=== PATIENT | female | born 1995 | race Hispanic/Latino ===

== ENCOUNTER 2017-09-01 20:31 | Emergency (ER) | payer SELFPAY ==
[2017-09-01 20:47] VITALS: BP 108/71
[2017-09-01 21:55] LABS: Hematocrit 36.8 % (30.3-42.9); Hemoglobin 12.1 gm/dl (10.1-14.3); Mean Corpuscular HGB Conc 33 % (30-34); Mean Corpuscular Hemoglobin 32 pg (28-32); Mean Corpuscular Volume 98 fl (79-97); Platelet Count 285 K/mm3 (140-440); Red Blood Count 3.75 M/mm3 (3.65-5.03); Red Cell Distribution Width 13.5 % (13.2-15.2); White Blood Count 8.6 K/mm3 (4.5-11.0)
[2017-09-01 22:01] LABS: Alanine Aminotransferase 8 units/L (7-56); Albumin 3.8 g/dL (3.9-5); Albumin/Globulin Ratio 1.3 %; Alkaline Phosphatase 40 units/L (35-129); Anion Gap 18 mmol/L; BUN/Creatinine Ratio 13; Blood Urea Nitrogen 10 mg/dL (7-17); Calcium 9.2 mg/dL (8.4-10.2); Carbon Dioxide 25 mmol/L (22-30); Chloride 101.6 mmol/L (98-107); Glucose 92 mg/dL (65-100); Lipase 111 units/L (13-60); Potassium 4.1 mmol/L (3.6-5.0); Sodium 140 mmol/L (137-145); Total Protein 6.7 g/dL (6.3-8.2)
[2017-09-01 22:35] LABS: Blastocytes % (Manual) 0 %
[2017-09-01 22:36] LABS: Anisocytosis 1+; Diff Status Complete; Ovalocytes 1+
== END 2017-09-01 22:12 | disposition other institution (70) ==
LOC: ED 20:31
DX: R10.9 Unspecified abdominal pain (principal); Z53.21 Procedure and treatment not carried out due to patient leaving prior to being seen by health care provider
CPT/HCPCS: 36415; 80053; 83690; 84703; 85007; 85025

== ENCOUNTER 2017-09-02 15:52 | Emergency (ER) | payer SELFPAY ==
--- NOTE | 2017-09-02 17:01 | Emergency Department Report ---
Chief Complaint: Abdominal Pain Stated Complaint: ABD PAIN Time Seen by Provider: 09/02/17 16:56 - HPI History of Present Illness: 22-year-old female presented with lower pelvic cramping 2 days. She admits to nausea /vomiting She denies fevers/chills/vaginal bleeding/dysuria/ - ROS Review of Systems: As noted in HPI - Exam Vital Signs: Vital Signs 09/02/17 16:15 Temperature 98.1 F Pulse Rate 68 Respiratory 16 Rate Blood Pressure 135/87 O2 Sat by Pulse 99 Oximetry Physical Exam: GENERAL: Alert and oriented x3, no apparent distress, Normal Gait, atraumatic. ABDOMEN: No organomegaly was noted,Positive bowel sounds, soft, and non- distended. Tender to palpation of lower pelvic region, NO CVA tenderness. SKIN: Warm and dry, No lesions, No ulceration or induration present. MSE screening note: Focused history and physical exam performed. Due to findings the following was ordered: ED Medical Decision Making - Medical Decision Making 22-year-old female actively vomiting Zofran and Tylenol ordered for patient Protocol ordered. Patient to be seen by the physician ED Disposition for MSE Condition: Stable Instructions: Abdominal Pain (ED)
[2017-09-02] MEDS ORDERED: ZOFRAN ODT PO ONE (17:18)
[2017-09-02] MEDS ORDERED: ZOFRAN ODT ONE (17:18)
[2017-09-02 17:22] LABS: Basophils % (Auto) 0.8 % (0.0-1.8); Eosinophils % (Auto) 0.7 % (0.0-4.3); Hematocrit 38.8 % (30.3-42.9); Hemoglobin 13.7 gm/dl (10.1-14.3); Mean Corpuscular HGB Conc 35 % (30-34); Mean Corpuscular Hemoglobin 34 pg (28-32); Mean Corpuscular Volume 96 fl (79-97); Platelet Count 315 K/mm3 (140-440); Red Blood Count 4.04 M/mm3 (3.65-5.03); Red Cell Distribution Width 13.2 % (13.2-15.2)
[2017-09-02 17:45] LABS: Alanine Aminotransferase 10 units/L (7-56); Albumin 4.3 g/dL (3.9-5); Albumin/Globulin Ratio 1.2 %; Alkaline Phosphatase 50 units/L (35-129); Anion Gap 24 mmol/L; BUN/Creatinine Ratio 13; Blood Urea Nitrogen 8 mg/dL (7-17); Calcium 9.5 mg/dL (8.4-10.2); Carbon Dioxide 20 mmol/L (22-30); Chloride 98.4 mmol/L (98-107); Glucose 99 mg/dL (65-100); Lipase 22 units/L (13-60); Potassium 3.4 mmol/L (3.6-5.0); Sodium 139 mmol/L (137-145); Total Protein 7.8 g/dL (6.3-8.2)
--- NOTE | 2017-09-02 20:18 | Ultrasound Report ---
FINAL REPORT EXAM: US TRANSVAGINAL HISTORY: PELVIC PAIN TECHNIQUE: Ultrasound pelvis transvaginal PRIORS: None. FINDINGS: Uterus measures 6.7 x 3.4 x 3.9 centimeters No focal myometrial abnormality seen Endometrial thickness is 0.2 centimeters Right ovary is 1.6 x 1.4 x 2.8 centimeters Left ovary is 2.3 x 2.1 x 2.3 centimeters No abnormal ovarian mass identified No free fluid identified within the cul-de-sac Noted on transabdominal exam is echogenic focus at the posterior wall of the bladder measuring 2.8 centimeters. No vascularity seen on color Doppler evaluation. Could reflect mass or possibly clot within the bladder. IMPRESSION: 2.8 centimeter mass versus clotted debris within the urinary bladder. May require additional urologic evaluation Otherwise normal study
--- NOTE | 2017-09-02 20:19 | Ultrasound Report ---
FINAL REPORT EXAM: US PELVIC COMPLETE HISTORY: pelv pain TECHNIQUE: PRIORS: None. FINDINGS: Uterus measures 6.7 x 3.4 x 3.9 centimeters No focal myometrial abnormality seen Endometrial thickness is 0.2 centimeters Right ovary is 1.6 x 1.4 x 2.8 centimeters Left ovary is 2.3 x 2.1 x 2.3 centimeters No abnormal ovarian mass identified No free fluid identified within the cul-de-sac Noted on transabdominal exam is echogenic focus at the posterior wall of the bladder measuring 2.8 centimeters. No vascularity seen on color Doppler evaluation. Could reflect mass or possibly clot within the bladder. IMPRESSION: 2.8 centimeter mass versus clot or debris within the urinary bladder. May require additional urologic evaluation Otherwise normal study
[2017-09-02] MEDS ORDERED: REGLAN IV ONE (20:50)
[2017-09-02] MEDS ORDERED: DILAUDID IV ONE (20:50)
[2017-09-02] MEDS ORDERED: NACL 0.9% 1000 ML 1,000 ML IV ONE (20:50)
--- NOTE | 2017-09-02 20:55 | Emergency Department Report ---
ED Abdominal Pain HPI - General Chief Complaint: Abdominal Pain Stated Complaint: ABD PAIN Time Seen by Provider: 09/02/17 16:56 Source: patient, EMS Mode of arrival: Wheelchair Limitations: No Limitations - History of Present Illness Initial Comments: Patient is 22 years old female history of gastroparesis With abdominal pain in nausea and vomiting for 2 days. Patient denied any fever no diarrhea. Denied any urinary symptoms. MD Complaint: abdominal pain -: Gradual Location: diffuse Severity scale (0 -10): 7 Quality: cramping Consistency: constant Improves With: vomiting Associated Symptoms: vomiting - Related Data Previous Rx's Medication Instructions Recorded Last Taken Type Ibuprofen [Motrin] 800 mg PO Q8HR PRN #30 tablet 08/25/17 Unknown Rx Neomy/Baci/Polymyx/Hc Top Oint 1 applic TP TID #2 tube 08/25/17 Unknown Rx [Cortisporin TOPICAL Oint] Ondansetron [Zofran Odt] 4 mg PO Q8H #16 tab.rapdis 08/25/17 Unknown Rx Sulfamethoxazole/Trimethoprim 1 each PO BID #10 tablet 08/25/17 Unknown Rx [Bactrim DS TAB] Allergies Allergy/AdvReac Type Severity Reaction Status Date / Time cephalexin [From Keflex] Allergy Rash Verified 09/02/17 16:17 ED Review of Systems ROS: Stated complaint: ABD PAIN Other details as noted in HPI Comment: All other systems reviewed and negative Constitutional: denies: chills, fever Respiratory: denies: cough, orthopnea, shortness of breath, SOB with exertion Cardiovascular: denies: chest pain, palpitations, dyspnea on exertion Gastrointestinal: abdominal pain, nausea, vomiting. denies: diarrhea, constipation, hematemesis Musculoskeletal: denies: back pain Neurological: denies: headache, weakness, numbness, paresthesias ED Past Medical Hx - Past Medical History Previous Medical History?: Yes Additional medical history: Painful menstrual cycles, gastroporesis, IBS - Surgical History Past Surgical History?: No - Social History Smoking Status: Current Every Day Smoker Substance Use Type: Marijuana - Medications Home Medications: Home Medications Medication Instructions Recorded Confirmed Last Taken Type Ibuprofen [Motrin] 800 mg PO Q8HR PRN #30 tablet 08/25/17 Unknown Rx Neomy/Baci/Polymyx/Hc Top Oint 1 applic TP TID #2 tube 08/25/17 Unknown Rx [Cortisporin TOPICAL Oint] Ondansetron [Zofran Odt] 4 mg PO Q8H #16 tab.rapdis 08/25/17 Unknown Rx Sulfamethoxazole/Trimethoprim 1 each PO BID #10 tablet 08/25/17 Unknown Rx [Bactrim DS TAB] ED Physical Exam - General Limitations: No Limitations General appearance: alert, in no apparent distress - Head Head exam: Present: normocephalic, normal inspection - Eye Eye exam: Present: normal appearance, PERRL - ENT ENT exam: Present: normal exam, mucous membranes dry - Neck Neck exam: Present: normal inspection, full ROM. Absent: tenderness, meningismus, lymphadenopathy - Respiratory Respiratory exam: Present: normal lung sounds bilaterally. Absent: respiratory distress, wheezes, rales, rhonchi, stridor, chest wall tenderness, decreased breath sounds, prolonged expiratory - Cardiovascular Cardiovascular Exam: Present: regular rate, normal rhythm, normal heart sounds - GI/Abdominal GI/Abdominal exam: Present: soft, tenderness (suprapubic), normal bowel sounds. Absent: distended, guarding, rebound, rigid, organomegaly, mass, bruit, pulsatile mass, hernia - Extremities Exam Extremities exam: Present: normal inspection, full ROM, normal capillary refill - Back Exam Back exam: Present: normal inspection. Absent: CVA tenderness (R), CVA tenderness (L), paraspinal tenderness, vertebral tenderness - Neurological Exam Neurological exam: Present: alert, oriented X3, CN II-XII intact, normal gait - Skin Skin exam: Present: warm, intact, normal color. Absent: cyanosis, diaphoretic ED Course Vital Signs 09/02/17 09/02/17 09/02/17 16:15 21:30 22:01 Temperature 98.1 F 97.8 F Pulse Rate 68 67 90 Respiratory 16 16 15 Rate Blood Pressure 135/87 115/71 114/72 O2 Sat by Pulse 99 98 Oximetry 09/02/17 22:16 Temperature Pulse Rate 108 H Respiratory 14 Rate Blood Pressure 114/72 O2 Sat by Pulse 98 Oximetry - Reevaluation(s) Reevaluation #1: 09/02/17 22:56 Patient stated that she is feeling better no more vomiting. I informed the patient about the ultrasound finding A 2.5 cm mass in the urinary bladder and the need to follow-up with a urologist in the next few days patient understood and she stated that she will find a urologist to follow-up with. ED Medical Decision Making - Lab Data Result diagrams: 09/02/17 17:07 09/02/17 17:07 - Radiology Data Radiology results: report reviewed Pelvic ultrasound showed 2.5 cm mass in the urinary bladder. Could be a mass or debris so clots in the bladder, urology follow-up was recommended. Critical care attestation.: If time is entered above; I have spent that time in minutes in the direct care of this critically ill patient, excluding procedure time. ED Disposition Clinical Impression: Abdominal pain, Mass of urinary bladder determined by ultrasound Disposition: DC-01 TO HOME OR SELFCARE Is pt being admited?: No Condition: Stable Instructions: Abdominal Pain (ED)
[2017-09-02] MEDS ORDERED: ATIVAN IV ONE (21:15)
[2017-09-02 22:24] LABS: Bilirubin,Urine NEG (Negative); Blood,Urine NEG (Negative); Ketones,Urine 80 mg/dL (Negative); Leukocyte Esterase,Urine NEG (Negative); Mucus,Urine 3+ /HPF; Nitrite,Urine NEG (Negative); Urobilinogen,Urine < 2.0 mg/dL (<2.0); WBC,Urine < 1.0 /HPF (0.0-6.0)
[2017-09-02 23:21] VITALS: BP 115/67
== END 2017-09-02 23:36 | disposition home or self-care (01) ==
LOC: ED 15:52
DX: N32.89 Other specified disorders of bladder (principal); F17.200 Nicotine dependence, unspecified, uncomplicated; F12.10 Cannabis abuse, uncomplicated; Z88.1 Allergy status to other antibiotic agents
CPT/HCPCS: 36415; 76830; 76856; 80053; 81001; 83690; 84703; 85025; 96361; 96374; 96375; 99285; J1170; J2060; J2765; J7030; Q0162

== ENCOUNTER 2017-09-16 19:39 | Emergency (ER) | payer MEDICAID, OTHER ==
[2017-09-16 20:41] LABS: Basophils % (Auto) 0.8 % (0.0-1.8); Eosinophils % (Auto) 0.4 % (0.0-4.3); Hematocrit 42.6 % (30.3-42.9); Hemoglobin 14.6 gm/dl (10.1-14.3); Mean Corpuscular HGB Conc 34 % (30-34); Mean Corpuscular Hemoglobin 33 pg (28-32); Mean Corpuscular Volume 96 fl (79-97); Platelet Count 252 K/mm3 (140-440); Red Blood Count 4.44 M/mm3 (3.65-5.03); Red Cell Distribution Width 12.6 % (13.2-15.2); White Blood Count 9.1 K/mm3 (4.5-11.0)
[2017-09-16 21:02] LABS: Alanine Aminotransferase 13 units/L (7-56); Albumin 4.5 g/dL (3.9-5); Albumin/Globulin Ratio 1.3 %; Alkaline Phosphatase 61 units/L (35-129); Anion Gap 26 mmol/L; BUN/Creatinine Ratio 15; Blood Urea Nitrogen 9 mg/dL (7-17); Calcium 9.5 mg/dL (8.4-10.2); Carbon Dioxide 21 mmol/L (22-30); Chloride 94.2 mmol/L (98-107); Glucose 96 mg/dL (65-100); Lipase 22 units/L (13-60); Potassium 3.1 mmol/L (3.6-5.0); Sodium 138 mmol/L (137-145); Total Protein 7.9 g/dL (6.3-8.2)
[2017-09-17 03:18] LABS: Bacteria,Urine 2+ /HPF (Negative); Bilirubin,Urine NEG (Negative); Blood,Urine NEG (Negative); Ketones,Urine 80 mg/dL (Negative); Leukocyte Esterase,Urine NEG (Negative); Mucus,Urine 3+ /HPF; Nitrite,Urine NEG (Negative); Protein,Urine <15 mg/dL mg/dL (Negative); Urobilinogen,Urine < 2.0 mg/dL (<2.0)
[2017-09-17] MEDS ORDERED: ZOFRAN IV ONE (04:07)
[2017-09-17] MEDS ORDERED: LEVAQUIN 750MG/150ML 750 MG/150 ML BAG IV ONE (04:10)
[2017-09-17] MEDS ORDERED: DILAUDID IV ONE (04:21)
--- NOTE | 2017-09-17 04:21 | Emergency Department Report ---
ED General Adult HPI - General Chief complaint: Abdominal Pain Stated complaint: PELVIC PAIN Time Seen by Provider: 09/17/17 04:09 Source: patient, RN notes reviewed, old records reviewed Mode of arrival: Wheelchair Limitations: No Limitations - History of Present Illness Initial comments: This is a 22-year-old female who was previously unknown to this provider. Patient recently moved here from [facility], and does not have a local primary care doctor. Presents to the ER with a complaint of subacute lower abdominal cramping and pain, nausea and vomiting, unintentional weight loss, malaise and fatigue. Patient reports being seen at another hospital last week for passing out. She reports that she feels lightheaded, dizzy and very dehydrated difficulty tolerating liquid feeds. Patient denies irritative and obstructive urinary symptoms. Her pain does not improve with a hot shower. She is very concerned about endometriosis. Patient has had extensive workup here already, had a CT scan of the abdomen and pelvis 23 days ago which was negative for acute findings, had a pelvic ultrasound which demonstrated nonspecific findings, patient has been discharged in the past with pain medication and nausea medication. The patient's pain is sharp and achy, and increases with palpation it decreases with rest. Not radiate anywhere. -: Gradual, week(s) Location: abdomen, pelvis Radiation: non-radiation Quality: aching Consistency: constant Improves with: rest Worsens with: movement Associated Symptoms: loss of appetite, malaise, nausea/vomiting, syncope ( syncope is not the patient's complaint today, but she does endorse that she had 2 episodes of syncope last week.), weakness. denies: confusion, chest pain - Related Data Previous Rx's Medication Instructions Recorded Last Taken Type Ibuprofen [Motrin] 800 mg PO Q8HR PRN #30 tablet 08/25/17 Unknown Rx Neomy/Baci/Polymyx/Hc Top Oint 1 applic TP TID #2 tube 08/25/17 Unknown Rx [Cortisporin TOPICAL Oint] Ondansetron [Zofran Odt] 4 mg PO Q8H #16 tab.rapdis 08/25/17 Unknown Rx Sulfamethoxazole/Trimethoprim 1 each PO BID #10 tablet 08/25/17 Unknown Rx [Bactrim DS TAB] Ondansetron [Zofran Odt] 4 mg PO Q8HR PRN #14 tab.rapdis 09/02/17 Unknown Rx traMADol [Ultram] 50 mg PO Q6HR PRN #14 tablet 09/02/17 Unknown Rx Dicyclomine [Bentyl] 10 mg PO QID PRN #30 capsule 09/17/17 Unknown Rx Ondansetron [Zofran Odt] 4 mg PO Q6HR PRN #30 tab.rapdis 09/17/17 Unknown Rx Promethazine [Phenergan SUPPOS] 50 mg [place] Q6H PRN #20 supp.rect 09/17/17 Unknown Rx Allergies Allergy/AdvReac Type Severity Reaction Status Date / Time cephalexin [From Keflex] Allergy Rash Verified 09/02/17 16:17 ED Review of Systems ROS: Stated complaint: PELVIC PAIN Other details as noted in HPI Constitutional: malaise, weakness ENT: denies: epistaxis Respiratory: denies: cough Cardiovascular: syncope. denies: chest pain Gastrointestinal: abdominal pain, nausea, vomiting Genitourinary: denies: urgency, dysuria, abnormal menses Musculoskeletal: denies: back pain Skin: denies: lesions Neurological: weakness Psychiatric: anxiety ED Past Medical Hx - Past Medical History Additional medical history: Painful menstrual cycles, gastroporesis, IBS - Social History Smoking Status: Never Smoker Substance Use Type: None - Medications Home Medications: Home Medications Medication Instructions Recorded Confirmed Last Taken Type Ibuprofen [Motrin] 800 mg PO Q8HR PRN #30 tablet 08/25/17 Unknown Rx Neomy/Baci/Polymyx/Hc Top Oint 1 applic TP TID #2 tube 08/25/17 Unknown Rx [Cortisporin TOPICAL Oint] Ondansetron [Zofran Odt] 4 mg PO Q8H #16 tab.rapdis 08/25/17 Unknown Rx Sulfamethoxazole/Trimethoprim 1 each PO BID #10 tablet 08/25/17 Unknown Rx [Bactrim DS TAB] Ondansetron [Zofran Odt] 4 mg PO Q8HR PRN #14 tab.rapdis 09/02/17 Unknown Rx traMADol [Ultram] 50 mg PO Q6HR PRN #14 tablet 09/02/17 Unknown Rx Dicyclomine [Bentyl] 10 mg PO QID PRN #30 capsule 09/17/17 Unknown Rx Ondansetron [Zofran Odt] 4 mg PO Q6HR PRN #30 tab.rapdis 09/17/17 Unknown Rx Promethazine [Phenergan SUPPOS] 50 mg [place] Q6H PRN #20 supp.rect 09/17/17 Unknown Rx ED Physical Exam - General Limitations: No Limitations General appearance: alert, in no apparent distress - Head Head exam: Present: atraumatic, normocephalic - Eye Eye exam: Present: normal appearance, EOMI - ENT ENT exam: Present: normal exam, normal orophraynx, mucous membranes moist, normal external ear exam - Neck Neck exam: Present: normal inspection, full ROM - Respiratory Respiratory exam: Present: normal lung sounds bilaterally. Absent: respiratory distress - Cardiovascular Cardiovascular Exam: Present: regular rate, normal rhythm, normal heart sounds. Absent: bradycardia, tachycardia, irregular rhythm, systolic murmur, diastolic murmur, rubs, gallop - GI/Abdominal GI/Abdominal exam: Present: soft, tenderness, normal bowel sounds, other (mild diffuse lower abdominal tenderness, no rebound or guarding or peritoneal signs) . Absent: distended, guarding, rebound, rigid, pulsatile mass - External exam: Present: normal external exam Speculum exam: Present: normal speculum exam. Absent: cervical discharge, vaginal bleeding Bi-manual exam: Present: normal bi-manual exam, other (escorted by data specialist mercedes cordero). Absent: cervical motion tendernes, adnexal tenderness, adnexal mass - Extremities Exam Extremities exam: Present: normal inspection, full ROM, normal capillary refill. Absent: pedal edema, joint swelling - Back Exam Back exam: Present: normal inspection, full ROM. Absent: tenderness, CVA tenderness (R), paraspinal tenderness, vertebral tenderness - Neurological Exam Neurological exam: Present: alert, oriented X3, other (Extraocular movements intact. Tongue midline. No facial droop. Facial sensation intact to light touch in the V1, V2, V3 distribution bilaterally. 5 and 5 strength in 4 extremities.. Sensation is intact to light touch in 4 extremities.). Absent: motor sensory deficit - Psychiatric Psychiatric exam: Present: anxious - Skin Skin exam: Present: warm, dry, intact, normal color. Absent: rash ED Course Vital Signs 09/16/17 09/17/17 09/17/17 19:42 02:45 03:00 Temperature 98.6 F Pulse Rate 97 H 68 88 Respiratory 18 14 Rate Blood Pressure 121/90 138/92 O2 Sat by Pulse 99 99 Oximetry 09/17/17 09/17/17 09/17/17 03:15 03:31 03:45 Temperature Pulse Rate 72 90 95 H Respiratory 19 20 20 Rate Blood Pressure 138/92 106/63 99/67 O2 Sat by Pulse 96 96 96 Oximetry 09/17/17 09/17/17 09/17/17 03:49 03:54 04:00 Temperature 98.5 F Pulse Rate 98 H Respiratory 18 20 Rate Blood Pressure 112/80 O2 Sat by Pulse 100 100 Oximetry 09/17/17 09/17/17 04:15 04:31 Temperature Pulse Rate 119 H 97 H Respiratory 11 L 17 Rate Blood Pressure 99/67 120/73 O2 Sat by Pulse 98 98 Oximetry - Reevaluation(s) Reevaluation #1: 09/17/17 05:17 Differential diagnosis, including but not limited to: Cyclic vomiting syndrome, cannabinoid hyperemesis syndrome, urinary tract infection, pelvic inflammatory disease, irritable bowel syndrome, endometriosis Assessment and plan: 22-year-old female with 3 weeks of lower abdominal pain, no irritative or obstructive urinary symptoms, benign gynecologic examination, therefore think urinary tract infection and PID unlikely. The patient most likely has irritable bowel syndrome or cyclic vomiting syndrome. Patient also reported possible gastroparesis which is also a possibility. I don't believe patient requires emergent imaging at this time, patient has had aggressive imaging here within the past month. The patient will be chewed with pain medication, nausea medication, and IV fluids. Patient will be given an oral trial once she has been medicated. Reevaluation #2: 09/17/17 05:52 The patient is able to tolerate liquid feeds. Still has lower abdominal tenderness but this has been present for 3 weeks. Tachycardia improved. Patient complaining IV fluids and IV potassium supplementation. Patient will be discharged with pain medication, nausea medication, instructions to follow up with outpatient primary care, gastroenterology, urology. ED Medical Decision Making - Lab Data Result diagrams: 09/16/17 20:06 09/16/17 20:06 Vital Signs 09/16/17 09/17/17 09/17/17 19:42 02:45 03:00 Temperature 98.6 F Pulse Rate 97 H 68 88 Respiratory 18 14 Rate Blood Pressure 121/90 138/92 O2 Sat by Pulse 99 99 Oximetry 09/17/17 09/17/17 09/17/17 03:15 03:31 03:45 Temperature Pulse Rate 72 90 95 H Respiratory 19 20 20 Rate Blood Pressure 138/92 106/63 99/67 O2 Sat by Pulse 96 96 96 Oximetry 09/17/17 09/17/17 09/17/17 03:49 03:54 04:00 Temperature 98.5 F Pulse Rate 98 H Respiratory 18 20 Rate Blood Pressure 112/80 O2 Sat by Pulse 100 100 Oximetry 09/17/17 09/17/17 04:15 04:31 Temperature Pulse Rate 119 H 97 H Respiratory 11 L 17 Rate Blood Pressure 99/67 120/73 O2 Sat by Pulse 98 98 Oximetry Labs 09/16/17 09/16/17 09/16/17 19:46 20:06 20:06 WBC 9.1 RBC 4.44 Hgb 14.6 H Hct 42.6 MCV 96 MCH 33 H MCHC 34 RDW 12.6 L Plt Count 252 Lymph % (Auto) 26.0 [place] % (Auto) 7.0 Eos % (Auto) 0.4 Baso % (Auto) 0.8 Lymph # 2.4 Kidder # 0.6 Eos # 0.0 Baso # 0.1 Seg Neutrophils % 65.8 Seg Neutrophils # 6.0 Sodium 138 Potassium 3.1 L Chloride 94.2 L Carbon Dioxide 21 L Anion Gap 26 BUN 9 Creatinine 0.6 L Estimated GFR > 60 BUN/Creatinine Ratio 15 Glucose 96 Calcium 9.5 Magnesium Total Bilirubin 0.80 AST 18 ALT 13 Alkaline Phosphatase 61 Total Protein 7.9 Albumin 4.5 Albumin/Globulin Ratio 1.3 Lipase 22 HCG, Qual Urine Color Yellow Urine Turbidity Clear Urine pH 7.0 Ur Specific [place] 1.016 Urine Protein <15 mg/dl Urine Glucose (UA) Neg Urine Ketones 80 Urine Blood Neg Urine Nitrite Neg Urine Bilirubin Neg Urine Urobilinogen < 2.0 Ur Leukocyte Esterase Neg Urine WBC (Auto) 13.0 H Urine RBC (Auto) 3.0 U Epithel Cells (Auto) < 1.0 Urine Bacteria (Auto) 2+ Urine WBC Clumps 2+ Urine Mucus 3+ 09/16/17 09/17/17 20:06 04:07 WBC RBC Hgb Hct MCV MCH MCHC RDW Plt Count Lymph % (Auto) [place] % (Auto) Eos % (Auto) Baso % (Auto) Lymph # [place] # Eos # Baso # Seg Neutrophils % Seg Neutrophils # Sodium Potassium Chloride Carbon Dioxide Anion Gap BUN Creatinine Estimated GFR BUN/Creatinine Ratio Glucose Calcium Magnesium 2.10 Total Bilirubin AST ALT Alkaline Phosphatase Total Protein Albumin Albumin/Globulin Ratio Lipase HCG, Qual Negative Urine Color Urine Turbidity Urine pH Ur Specific [place] Urine Protein Urine Glucose (UA) Urine Ketones Urine Blood Urine Nitrite Urine Bilirubin Urine Urobilinogen Ur Leukocyte Esterase Urine WBC (Auto) Urine RBC (Auto) U Epithel Cells (Auto) Urine Bacteria (Auto) Urine WBC Clumps Urine Mucus - EKG Data -: EKG Interpreted by Me EKG shows normal: sinus rhythm Rate: normal - EKG Data 09/17/17 05:20 Sinus, 99 bpm, normal axis, QTC prolonged, abnormal EKG, not morphologically consistent with ST elevation myocardial infarction. Critical care attestation.: If time is entered above; I have spent that time in minutes in the direct care of this critically ill patient, excluding procedure time. ED Disposition Clinical Impression: Lower abdominal pain Disposition: DC- TO HOME OR SELFCARE Is pt being admited?: No Does the pt Need Aspirin: No Condition: Stable Instructions: Abdominal Pain (ED) Additional Instructions: Cultures were sent today, results will be available in the next 3-5 days. Her primary care doctor contact medical records department to obtain culture results. Take the nausea medication, pain medication as directed. Use the Phenergan suppositories for intractable nausea or vomiting. Follow up with a primary care doctor within the next [address] Mccain is a local primary care doctor. Follow-up with a nicu rn within the next [address] Guido is a local nicu rn. Follow up with the urology specialist within the next month. Not following up with urology may result in undiagnosed tumor, cancer, malignancy of the urinary tract. Return to the ER right away with new pain, worsening pain, migration of pain, fevers, chills, lethargy, irritability, projectile vomiting, change in mental status, confusion, inability to tolerate liquid feeds. Referrals: PRIMARY CAREMD [Primary Care Provider] - 3-5 Days JOHANA MCCAIN MD [Staff Physician] - 3-5 Days CARYL GUIDO MD [Staff Physician] - 3-5 Days STEVIE CAPELLAN MD [Staff Physician] - 3-5 Days
[2017-09-17] MEDS ORDERED: D5/0.45NS 1,000 ML IV SCH (05:00)
[2017-09-17] MEDS ORDERED: D5NS 1,000 ML IV SCH ×2 (05:00)
[2017-09-17] MEDS ORDERED: K-DUR PO ONE (05:19)
[2017-09-17] MEDS ORDERED: BENADRYL ONE (05:38)
[2017-09-17] MEDS ORDERED: BENADRYL PO ONE (05:41)
[2017-09-17] MEDS ORDERED: KCL 20 MEQ in NACL 0.9% 250ML 250 ML IV ONE (06:00)
[2017-09-17] MEDS ORDERED: KCL 10MEQ/100ML 10 MEQ/100 ML BAG IV SCH (06:00)
[2017-09-17] MEDS ORDERED: NACL 0.9% 500 ML 500 ML ONE (08:32)
[2017-09-17] MEDS ORDERED: NACL 0.9% 500 ML 500 ML IV ONE (08:40)
[2017-09-17 10:21] VITALS: BP 129/79
== END 2017-09-17 12:09 | disposition home or self-care (01) ==
LOC: ED 19:39
DX: R10.30 Lower abdominal pain, unspecified (principal); R53.1 Weakness; K31.84 Gastroparesis; Z88.1 Allergy status to other antibiotic agents
CPT/HCPCS: 36415; 80053; 81001; 83690; 83735; 84703; 85025; 87086; 87210; 87591; 93005; 93010; 96361; 96374; 96375; 99284; J1170; J2405; J3480; J7040; J7050; Q0163